=== PATIENT | male | born 1980 | race Caucasian/White ===

== ENCOUNTER 2019-12-12 02:52 | Emergency (ER) | payer MEDICAID ==
[~2019-12-12] VITALS: Ht 188 cm; Wt 95.4 kg
[2019-12-12 03:17] VITALS: BP 163/112
== END 2019-12-12 03:20 | disposition home or self-care (01) ==
LOC: ER 02:53
DX: J06.9 Acute upper respiratory infection, unspecified (principal); G35 Multiple sclerosis; F17.200 Nicotine dependence, unspecified, uncomplicated; F15.90 Other stimulant use, unspecified, uncomplicated; Z59.0 Homelessness
CPT/HCPCS: 99281

== ENCOUNTER 2020-03-08 15:27 | Emergency (ER) | payer MEDICAID ==
[~2020-03-08] VITALS: Ht 185.4 cm; Wt 88.6 kg
[2020-03-08 15:43] VITALS: BP 132/79
--- NOTE | 2020-03-08 17:02 | NUR ---
ELAINE Ca at bedside.
[2020-03-08] MEDS ORDERED: sulfamethoxazole/trimethoprim DS (800/160mg) tablet PO ONE (17:35)
[2020-03-08] MEDS ORDERED: cephalexin 250mg capsule PO ONE (17:35)
[2020-03-08] MEDS ORDERED: SULF1TAB49 PO (17:43)
[2020-03-08] MEDS ORDERED: CEPH500C5 PO (17:43)
== END 2020-03-08 17:58 | disposition home or self-care (01) ==
LOC: ER 15:27
DX: L02.511 Cutaneous abscess of right hand (principal); G35 Multiple sclerosis; F15.90 Other stimulant use, unspecified, uncomplicated; Z72.89 Other problems related to lifestyle; Z59.0 Homelessness; Z79.899 Other long term (current) drug therapy
CPT/HCPCS: 10060; 99283

== ENCOUNTER 2022-01-07 09:02 | Emergency (ER) | payer MEDICAID ==
[~2022-01-07] VITALS: Ht 188 cm; Wt 85.9 kg
[2022-01-07] MEDS ORDERED: methylPREDNISolone sod succ 125mg/2ml vial IV ONE (09:30)
[2022-01-07] MEDS ORDERED: LORazepam 2 mg/ml vial IV ONE (09:30)
[2022-01-07] MEDS ORDERED: HYDROcodone/acetaminophen 10/325mg tab PO ONE (10:50)
[2022-01-07 11:07] VITALS: BP 122/78
== END 2022-01-07 11:08 | disposition home or self-care (01) ==
LOC: ER 09:03
DX: M54.2 Cervicalgia (principal); M54.50 Low back pain, unspecified; R05.9 Cough, unspecified; M79.601 Pain in right arm; F17.200 Nicotine dependence, unspecified, uncomplicated; F15.90 Other stimulant use, unspecified, uncomplicated; Z72.89 Other problems related to lifestyle; Z59.00 Homelessness unspecified
CPT/HCPCS: 71045; 96374; 96375; 99284; J2060; J2930

== ENCOUNTER 2022-01-08 16:40 | Emergency (ER) | payer MEDICAID ==
[~2022-01-08] VITALS: Ht 188 cm; Wt 100.0 kg
[2022-01-08 16:46] VITALS: BP 135/80
== END 2022-01-08 17:42 | disposition home or self-care (01) ==
LOC: ER 16:41
DX: M54.2 Cervicalgia (principal); M25.511 Pain in right shoulder; F15.90 Other stimulant use, unspecified, uncomplicated; Z72.89 Other problems related to lifestyle; Z59.00 Homelessness unspecified
CPT/HCPCS: 99283

== ENCOUNTER 2022-01-15 17:06 | Emergency (ER) | payer MEDICAID ==
[~2022-01-15] VITALS: Ht 185.4 cm; Wt 96.5 kg
[2022-01-15 17:06] VITALS: BP 137/90
[2022-01-15] MEDS ORDERED: ACET-1008 PO (17:53)
[2022-01-15] MEDS ORDERED: QUET-1 PO (17:53)
[2022-01-15 17:55] LABS: BASOPHILS # (AUTO) 0.1 X10'3 (0-0.2); BASOPHILS % (AUTO) 0.7 % (0-1); EOSINOPHILS # (AUTO) 0.1 X10'3 (0-0.9); EOSINOPHILS % (AUTO) 1.3 % (0-6); HEMATOCRIT 44.9 % (42.0-52.0); HEMOGLOBIN 15.4 g/dl (14.0-17.9); LYMPHOCYTES # (AUTO) 2.2 X10'3 (1.1-4.8); LYMPHOCYTES % (AUTO) 22.1 % (21-51); MEAN CORPUSCULAR HGB CONC 34.3 g/dL (33.0-36.5); MEAN CORPUSCULAR VOLUME 87.4 FL (78-98); MEAN PLATELET VOLUME 6.6 FL (7.4-10.4); MONOCYTES % (AUTO) 10.1 % (2-12); NEUTROPHILS # (AUTO) 6.6 X10'3 (1.8-7.7); NEUTROPHILS % (AUTO) 65.8 % (42-75); PLATELET COUNT 347 X10'3 (140-440); RED BLOOD COUNT 5.14 X10'6 (4.70-6.10); RED CELL DISTRIBUTION WIDTH 14.1 % (11.5-14.5)
[2022-01-15 18:04] LABS: GLUCOSE 105 MG/DL (70-104); POTASSIUM 4.2 MMOL/L (3.5-5.1); SODIUM 136 MMOL/L (135-145)
[2022-01-15 18:05] LABS: ALANINE AMINOTRANSFERASE 32 U/L (12-78); ALBUMIN 4.1 G/DL (3.4-5.0); ALBUMIN/GLOBULIN RATIO 1.2 (1.1-1.5); ALKALINE PHOSPHATASE 42 IU/L (46-116); ANION GAP 10 (8-16); ASPARTATE AMINO TRANSFERASE 23 U/L (10-37); BILIRUBIN,TOTAL 0.3 MG/DL (0.1-1.0); BLOOD UREA NITROGEN 23 MG/DL (7-18); CALCIUM 8.4 MG/DL (8.5-10.1); CHLORIDE 103 MMOL/L (99-107); TOTAL CARBON DIOXIDE 23.2 MMOL/L (24-32); TOTAL PROTEIN 7.4 G/DL (6.4-8.2); eGFR 82 ML/MIN
[2022-01-15 18:08] LABS: CLARITY,URINE CLEAR (Clear); COLOR,URINE YELLOW (Yellow); GLUCOSE, URINE NEGATIVE (Neg); KETONES,URINE NEGATIVE (Neg); LEUKOCYTE ESTERASE ,URINE NEGATIVE (Neg); NITRITES, URINE NEGATIVE (Neg); OCCULT BLOOD,URINE NEGATIVE (Neg); PROTEIN,URINE NEGATIVE (Neg); UA COLLECTION TYPE CLN CATCH MIDSTREAM; UROBILINOGEN,URINE 0.2 E.U/dL (0.2-1.0)
[2022-01-15 18:16] LABS: ACETAMINOPHEN < 2.0 UG/ML (10-30)
[2022-01-15 18:23] LABS: URINE AMPHETAMINE SCREEN NEGATIVE (Neg); URINE BARBITUATE SCREEN NEGATIVE (Neg); URINE BENZODIAZEPINES SCREEN NEGATIVE (Neg); URINE CANNABINOID SCREEN NEGATIVE (Neg); URINE COCAINE SCREEN NEGATIVE (Neg); URINE METHADONE SCREEN NEGATIVE (Neg); URINE OPIATE SCREEN NEGATIVE (Neg); URINE PHENCYCLIDINE SCREEN NEGATIVE (Neg)
--- NOTE | 2022-01-15 18:30 | NUR ---
Patient walked up to crusher tender desk and requesting food. Stating that he is missing dinner at [facility] and that something about needs nicotine. Patient was also stating that he believes that he can go to mental health and get the help he needs tomorrow. I asked if he could just wait a moment til I could finish report and speak with one of our nurse practitioners. He agreed and went to room and sat on [place].
--- NOTE | 2022-01-15 18:50 | NUR ---
Patient again came up to charge desk while I was giving report to supervisor cabinetmaker RN. And stated that he didn't want to me get angry at me and he doesn't know why he "gives a shit", but he feels like he wants to go and he can get the help he needs tomorrow. I asked again if he could just wait for a provider to evaluate him. He stated that he was not longer waiting and without any holding orders I am unable to keep him here against his will. Patient departed ER with all belongings and took his medications with him. Walked out of ER with walker with a steady gait.
== END 2022-01-15 19:09 | disposition left against medical advice (07) ==
LOC: ER 17:08
DX: R45.851 Suicidal ideations (principal); Z53.21 Procedure and treatment not carried out due to patient leaving prior to being seen by health care provider
CPT/HCPCS: 36415; 80053; 80305; 80329; 81003; 84443; 85025